=== PATIENT | female | born 1940 | race Caucasian/White ===

== ENCOUNTER 2022-03-16 10:07 | Inpatient (IN) | payer OTHER ==
[~2022-03-16] VITALS: Ht 162.6 cm; Wt 59.0 kg
[2022-03-16 10:11] VITALS: BP_SYST 138
[2022-03-16 10:46] LABS: BASOPHILS # (AUTO) 0.1 K/uL (0.0-0.2); BASOPHILS % (AUTO) 0.8 % (0.0-2.0); EOSINOPHILS # (AUTO) 0.7 K/uL (0.0-0.4); EOSINOPHILS % (AUTO) 7.7 % (0.0-4.0); HEMATOCRIT 37.4 % (36-48); HEMOGLOBIN 12.1 g/dL (12.0-16.0); LYMPHOCYTES # (AUTO) 1.8 K/uL (1.0-5.5); LYMPHOCYTES % (AUTO) 20.8 % (20.5-51.5); MEAN CORPUSCULAR HEMOGLOBIN 30 pg (27-31); MEAN CORPUSCULAR HGB CONC 33 % (32-36); MEAN CORPUSCULAR VOLUME 92 fL (79.0-98.0); MONOCYTES # (AUTO) 0.4 K/uL (0.0-1.0); MONOCYTES % (AUTO) 4.1 % (1.7-9.3); NEUTROPHILS # (AUTO) 5.7 K/uL (1.8-7.7); NEUTROPHILS % (AUTO) 66.6 % (40.0-70.0); PLATELET COUNT (AUTO) 244 K/uL (130-430); RED BLOOD CELL COUNT(AUTO) 4.08 MIL/uL (4.2-6.2); RED CELL DISTRIBUTION WIDTH 15.1 % (9.0-15.0); WHITE BLOOD COUNT (AUTO) 8.5 K/uL (4.8-10.8)
[2022-03-16 11:08] LABS: ANION GAP 8 (5-15); CALCIUM 8.5 mg/dL (8.4-11.0); CHLORIDE 106 mmol/L (98-107); CREATININE 1.63 mg/dL (0.55-1.30); GLUCOSE 104 mg/dL (70-99); SODIUM SERUM 141 mmol/L (136-145); UREA NITROGEN, BLOOD 26 mg/dL (8-21)
[2022-03-16 11:11] LABS: ALANINE AMINOTRANSFERASE 11 U/L (12-78); ALBUMIN 2.9 g/dL (3.4-4.8); ASPARTATE AMINOTRANSFERASE 19 U/L (10-37); TOTAL BILIRUBIN 0.2 mg/dL (0.0-1.0)
[2022-03-16] MEDS ORDERED: HYDROcodone/ACETAMIN 5-325 MG TAB (NORCO/ VICODIN) PO ONE (11:30)
[2022-03-16] MEDS ORDERED: IBUPROFEN 600 MG TABLET PO ONE (11:30)
[2022-03-16] MEDS ORDERED: ASPIRIN 81 MG TABLET(ECOTRIN) PO ONE (12:15)
[2022-03-16] MEDS ORDERED: TRAZ-250 PO (13:22)
[2022-03-16] MEDS ORDERED: ASPI-1155 PO (13:22)
[2022-03-16] MEDS ORDERED: FAMO20TA8 PO (13:22)
[2022-03-16] MEDS ORDERED: CEL20 PO (13:22)
[2022-03-16] MEDS ORDERED: LEVO25TA7 PO (13:22)
[2022-03-16] MEDS ORDERED: ASPIRIN 81 MG TAB.CHEW ONE (15:02)
[2022-03-16 16:17] VITALS: BP_SYST 153
[2022-03-16] MEDS: D5/0.45 NS 1,000 ML IV SCH (17:57)
[2022-03-16] MEDS ORDERED: DILTIAZEM HCL 60 MG TABLET PO SCH (18:00)
[2022-03-16 18:16] LABS: BILIRUBIN,URINE NEGATIVE (NEGATIVE); BLOOD, URINE NEGATIVE (NEGATIVE); CLARITY/URINE CLEAR (CLEAR); COLOR,URINE YELLOW (YELLOW); GLUCOSE,URINE NEGATIVE (NEGATIVE); KETONES,URINE NEGATIVE (NEGATIVE); LEUKOCYTE ESTERASE ,URINE NEGATIVE (NEGATIVE); NITRITE, URINE NEGATIVE (NEGATIVE); PH,URINE 6.5 (5.0-8.0); PROTEIN URINE NEGATIVE (NEGATIVE); UROBILINOGEN,URINE 0.2 (0.2-1.0)
[2022-03-16 20:00] VITALS: BP_SYST 132
[2022-03-16] MEDS: traZODone HCL 50 MG TABLET (DESYREL) PO SCH (20:29)
[2022-03-16] MEDS: FAMOTIDINE 20 MG TABLET PO SCH (20:30)
[2022-03-17 00:19] VITALS: BP_SYST 116
[2022-03-17 06:39] LABS: BASOPHILS # (AUTO) 0.1 K/uL (0.0-0.2); BASOPHILS % (AUTO) 0.6 % (0.0-2.0); EOSINOPHILS # (AUTO) 0.7 K/uL (0.0-0.4); EOSINOPHILS % (AUTO) 9.1 % (0.0-4.0); HEMATOCRIT 34.2 % (36-48); HEMOGLOBIN 11.3 g/dL (12.0-16.0); LYMPHOCYTES # (AUTO) 2.2 K/uL (1.0-5.5); LYMPHOCYTES % (AUTO) 28.1 % (20.5-51.5); MEAN CORPUSCULAR HEMOGLOBIN 30 pg (27-31); MEAN CORPUSCULAR HGB CONC 33 % (32-36); MEAN CORPUSCULAR VOLUME 91 fL (79.0-98.0); MONOCYTES # (AUTO) 0.5 K/uL (0.0-1.0); MONOCYTES % (AUTO) 6.9 % (1.7-9.3); NEUTROPHILS # (AUTO) 4.3 K/uL (1.8-7.7); NEUTROPHILS % (AUTO) 55.3 % (40.0-70.0); PLATELET COUNT (AUTO) 261 K/uL (130-430); RED BLOOD CELL COUNT(AUTO) 3.76 MIL/uL (4.2-6.2); RED CELL DISTRIBUTION WIDTH 14.9 % (9.0-15.0); WHITE BLOOD COUNT (AUTO) 7.8 K/uL (4.8-10.8)
[2022-03-17 06:45] LABS: ANION GAP 9 (5-15); CALCIUM 8.1 mg/dL (8.4-11.0); CHLORIDE 107 mmol/L (98-107); CREATININE 1.57 mg/dL (0.55-1.30); GLUCOSE 93 mg/dL (70-99); POTASSIUM 3.6 mmol/L (3.5-5.1); SODIUM SERUM 143 mmol/L (136-145); UREA NITROGEN, BLOOD 24 mg/dL (8-21)
[2022-03-17 07:04] LABS: ALANINE AMINOTRANSFERASE 16 U/L (12-78); ALBUMIN 2.7 g/dL (3.4-4.8); ASPARTATE AMINOTRANSFERASE 15 U/L (10-37); FREE T4 (FREE THYROXINE) 0.9 ng/dl (0.8-1.5); THYROID STIMULATING HORMONE 4.71 uIu/mL (0.36-3.74); TOTAL BILIRUBIN 0.2 mg/dL (0.0-1.0)
[2022-03-17 07:40] VITALS: BP_SYST 156
[2022-03-17 08:33] LABS: CHOLESTEROL 210 mg/dL (<200); HDL CHOLESTEROL 55 mg/dL (>55); LDL CHOLESTEROL 127 mg/dL (<100); TRIGLYCERIDES 90 mg/dL (30-150)
[2022-03-17] MEDS: ASPIRIN 81 MG TAB.CHEW PO SCH (09:01)
[2022-03-17] MEDS: LEVOTHYROXINE SODIUM 0.025 MG TABLET PO SCH (09:01)
[2022-03-17] MEDS: cefTRIAXone 1 GM IVPB PREMIX 50 ML IV SCH (10:12)
[2022-03-17] MEDS ORDERED: DIPHENHYDRAMINE HCL 25 MG CAPSULE PO PRN (11:00)
[2022-03-17] MEDS ORDERED: CLOPIDOGREL BISULFATE 75 MG TABLET PO ONE (11:00)
[2022-03-17] MEDS ORDERED: HYDROCORTISONE 2.5%, 30 GM TOPICAL CREAM TP PRN (11:00)
[2022-03-17] MEDS: ACETAMINOPHEN 325 MG TABLET PO PRN (11:17)
[2022-03-17 11:28] VITALS: BP_SYST 131
[2022-03-17] MEDS: traMADol HCL HCL 50 MG TABLET (ULTRAM) PO PRN ×2 (13:38→20:17)
[2022-03-17 16:08] VITALS: BP_SYST 125
[2022-03-17] MEDS: D5/0.45 NS 1,000 ML IV SCH (17:13)
[2022-03-17 20:09] VITALS: BP_SYST 128
[2022-03-17] MEDS: FAMOTIDINE 20 MG TABLET PO SCH (20:17)
[2022-03-17] MEDS: traZODone HCL 50 MG TABLET (DESYREL) PO SCH (20:17)
[2022-03-18] MEDS: D5/0.45 NS 1,000 ML IV SCH ×2 (00:05→09:34)
[2022-03-18 00:54] VITALS: BP_SYST 108
[2022-03-18 06:42] LABS: BASOPHILS % (AUTO) 0.5 % (0.0-2.0); EOSINOPHILS # (AUTO) 0.8 K/uL (0.0-0.4); EOSINOPHILS % (AUTO) 12.5 % (0.0-4.0); HEMATOCRIT 34.6 % (36-48); HEMOGLOBIN 11.2 g/dL (12.0-16.0); LYMPHOCYTES # (AUTO) 2.1 K/uL (1.0-5.5); LYMPHOCYTES % (AUTO) 34.8 % (20.5-51.5); MEAN CORPUSCULAR HEMOGLOBIN 30 pg (27-31); MEAN CORPUSCULAR HGB CONC 32 % (32-36); MEAN CORPUSCULAR VOLUME 92 fL (79.0-98.0); MONOCYTES # (AUTO) 0.5 K/uL (0.0-1.0); MONOCYTES % (AUTO) 7.6 % (1.7-9.3); NEUTROPHILS # (AUTO) 2.7 K/uL (1.8-7.7); NEUTROPHILS % (AUTO) 44.6 % (40.0-70.0); PLATELET COUNT (AUTO) 246 K/uL (130-430); RED BLOOD CELL COUNT(AUTO) 3.78 MIL/uL (4.2-6.2); WHITE BLOOD COUNT (AUTO) 6.1 K/uL (4.8-10.8)
[2022-03-18 07:29] LABS: ALANINE AMINOTRANSFERASE 12 U/L (12-78); ALBUMIN 2.7 g/dL (3.4-4.8); ANION GAP 7 (5-15); ASPARTATE AMINOTRANSFERASE 16 U/L (10-37); CALCIUM 8.4 mg/dL (8.4-11.0); CHLORIDE 107 mmol/L (98-107); CREATININE 1.47 mg/dL (0.55-1.30); GLUCOSE 98 mg/dL (70-99); POTASSIUM 3.6 mmol/L (3.5-5.1); SODIUM SERUM 142 mmol/L (136-145); TOTAL BILIRUBIN 0.2 mg/dL (0.0-1.0); UREA NITROGEN, BLOOD 22 mg/dL (8-21)
[2022-03-18 07:48] VITALS: BP_SYST 139
[2022-03-18] MEDS: ASPIRIN 81 MG TAB.CHEW PO SCH (08:42)
[2022-03-18] MEDS: CLOPIDOGREL BISULFATE 75 MG TABLET PO SCH (08:43)
[2022-03-18] MEDS: ATORVASTATIN 20 MG TABLET PO SCH (08:43)
[2022-03-18] MEDS: LEVOTHYROXINE SODIUM 0.025 MG TABLET PO SCH (08:43)
[2022-03-18] MEDS: cefTRIAXone 1 GM IVPB PREMIX 50 ML IV SCH (09:45)
[2022-03-18 11:56] VITALS: BP_SYST 139
[2022-03-18] MEDS ORDERED: ONDANSETRON HCL 4 MG/2 ML VIAL IVP PRN (13:15)
[2022-03-18] MEDS: traMADol HCL HCL 50 MG TABLET (ULTRAM) PO PRN (13:24)
[2022-03-18] MEDS ORDERED: BISACODYL 10 MG/SUPPOSITORY RC ONE (14:00)
[2022-03-18] MEDS ORDERED: BISACODYL 10 MG/SUPPOSITORY RC PRN (14:00)
[2022-03-18] MEDS ORDERED: DOCUSATE SODIUM 100 MG CAPSULE PO ONE (14:00)
[2022-03-18 16:09] VITALS: BP_SYST 139
[2022-03-18 20:01] VITALS: BP_SYST 135
[2022-03-18] MEDS: traZODone HCL 50 MG TABLET (DESYREL) PO SCH (22:24)
[2022-03-18] MEDS: DOCUSATE SODIUM 250 MG CAPSULE PO SCH (22:24)
[2022-03-18] MEDS: FAMOTIDINE 20 MG TABLET PO SCH (22:25)
[2022-03-18] MEDS: ACETAMINOPHEN 325 MG TABLET PO PRN (22:29)
[2022-03-19] VITALS (7 sets, daily range): BP systolic 124–161
[2022-03-19 07:07] LABS: BASOPHILS % (AUTO) 0.7 % (0.0-2.0); EOSINOPHILS # (AUTO) 0.3 K/uL (0.0-0.4); EOSINOPHILS % (AUTO) 4.1 % (0.0-4.0); HEMATOCRIT 32.9 % (36-48); HEMOGLOBIN 10.9 g/dL (12.0-16.0); LYMPHOCYTES % (AUTO) 30.4 % (20.5-51.5); MEAN CORPUSCULAR HEMOGLOBIN 30 pg (27-31); MEAN CORPUSCULAR HGB CONC 33 % (32-36); MEAN CORPUSCULAR VOLUME 91 fL (79.0-98.0); MONOCYTES # (AUTO) 0.4 K/uL (0.0-1.0); NEUTROPHILS # (AUTO) 3.9 K/uL (1.8-7.7); NEUTROPHILS % (AUTO) 58.8 % (40.0-70.0); PLATELET COUNT (AUTO) 247 K/uL (130-430); RED BLOOD CELL COUNT(AUTO) 3.61 MIL/uL (4.2-6.2); RED CELL DISTRIBUTION WIDTH 14.6 % (9.0-15.0); WHITE BLOOD COUNT (AUTO) 6.6 K/uL (4.8-10.8)
[2022-03-19 07:56] LABS: ANION GAP 6 (5-15); CALCIUM 8.6 mg/dL (8.4-11.0); CHLORIDE 108 mmol/L (98-107); CREATININE 1.36 mg/dL (0.55-1.30); GLUCOSE 100 mg/dL (70-99); POTASSIUM 3.8 mmol/L (3.5-5.1); SODIUM SERUM 143 mmol/L (136-145); UREA NITROGEN, BLOOD 18 mg/dL (8-21)
[2022-03-19] MEDS: DOCUSATE SODIUM 250 MG CAPSULE PO SCH ×2 (09:00→21:51)
[2022-03-19] MEDS: D5/0.45 NS 1,000 ML IV SCH (09:25)
[2022-03-19] MEDS: ASPIRIN 81 MG TAB.CHEW PO SCH (09:26)
[2022-03-19] MEDS: ATORVASTATIN 20 MG TABLET PO SCH (09:27)
[2022-03-19] MEDS: LEVOTHYROXINE SODIUM 0.025 MG TABLET PO SCH (09:27)
[2022-03-19] MEDS: CLOPIDOGREL BISULFATE 75 MG TABLET PO SCH (09:27)
[2022-03-19] MEDS ORDERED: MINERAL OIL 133 ML ENEMA RC ONE (15:15)
[2022-03-19] MEDS ORDERED: LACTULOSE 20 GM/30 ML UDC PO ONE ×2 (16:30)
[2022-03-19] MEDS: traZODone HCL 50 MG TABLET (DESYREL) PO SCH (21:51)
[2022-03-19] MEDS: FAMOTIDINE 20 MG TABLET PO SCH (21:52)
[2022-03-20 00:41] VITALS: BP_SYST 151
[2022-03-20] MEDS: ACETAMINOPHEN 325 MG TABLET PO PRN (01:09)
[2022-03-20] MEDS: D5/0.45 NS 1,000 ML IV SCH (02:24)
[2022-03-20 06:26] LABS: BASOPHILS % (AUTO) 0.6 % (0.0-2.0); EOSINOPHILS # (AUTO) 0.4 K/uL (0.0-0.4); EOSINOPHILS % (AUTO) 5.7 % (0.0-4.0); HEMATOCRIT 33.2 % (36-48); HEMOGLOBIN 11.1 g/dL (12.0-16.0); LYMPHOCYTES # (AUTO) 1.8 K/uL (1.0-5.5); LYMPHOCYTES % (AUTO) 23.3 % (20.5-51.5); MEAN CORPUSCULAR HEMOGLOBIN 30 pg (27-31); MEAN CORPUSCULAR HGB CONC 33 % (32-36); MEAN CORPUSCULAR VOLUME 91 fL (79.0-98.0); MONOCYTES # (AUTO) 0.5 K/uL (0.0-1.0); MONOCYTES % (AUTO) 6.5 % (1.7-9.3); NEUTROPHILS # (AUTO) 5.1 K/uL (1.8-7.7); NEUTROPHILS % (AUTO) 63.9 % (40.0-70.0); PLATELET COUNT (AUTO) 255 K/uL (130-430); RED BLOOD CELL COUNT(AUTO) 3.64 MIL/uL (4.2-6.2); RED CELL DISTRIBUTION WIDTH 14.7 % (9.0-15.0); WHITE BLOOD COUNT (AUTO) 7.9 K/uL (4.8-10.8)
[2022-03-20 06:37] LABS: ANION GAP 9 (5-15); CALCIUM 8.7 mg/dL (8.4-11.0); CHLORIDE 108 mmol/L (98-107); CREATININE 1.35 mg/dL (0.55-1.30); GLUCOSE 91 mg/dL (70-99); POTASSIUM 3.6 mmol/L (3.5-5.1); SODIUM SERUM 142 mmol/L (136-145); UREA NITROGEN, BLOOD 12 mg/dL (8-21)
[2022-03-20 08:00] VITALS: BP_SYST 151
[2022-03-20] MEDS: DOCUSATE SODIUM 250 MG CAPSULE PO SCH (09:00)
[2022-03-20] MEDS ORDERED: LACTULOSE 20 GM/30 ML UDC PO SCH (09:00)
[2022-03-20] MEDS: LEVOTHYROXINE SODIUM 0.025 MG TABLET PO SCH (09:01)
[2022-03-20] MEDS: ASPIRIN 81 MG TAB.CHEW PO SCH (09:01)
[2022-03-20] MEDS: ATORVASTATIN 20 MG TABLET PO SCH (09:01)
[2022-03-20] MEDS: CLOPIDOGREL BISULFATE 75 MG TABLET PO SCH (09:01)
[2022-03-20] MEDS ORDERED: DIATR MEGLU/DIATRIZ SOD 30 ML SOLUTION PO ONE (09:15)
[2022-03-20] MEDS ORDERED: DOCU250C71 PO (11:20)
[2022-03-20] MEDS ORDERED: LIP20 PO (11:20)
[2022-03-20 11:38] VITALS: BP_SYST 155
[2022-03-20 12:44] VITALS: BP_SYST 148
== END 2022-03-20 13:45 | disposition home health service (06) | DRG 306 ==
LOC: SED 10:07 → STU 13:00 → SMU 03-19 09:59
PROVIDERS: ADMIT Internal Medicine; ATTEND Internal Medicine
PROC: 4A10X4Z Monitoring of Central Nervous Electrical Activity, External Approach (ICD-10-PCS; principal; 2022-03-17)
DX: I35.0 Nonrheumatic aortic (valve) stenosis (principal); N17.0 Acute kidney failure with tubular necrosis; G45.9 Transient cerebral ischemic attack, unspecified; E44.0 Moderate protein-calorie malnutrition; E86.0 Dehydration; E03.9 Hypothyroidism, unspecified; F32.A Depression, unspecified; I25.10 Atherosclerotic heart disease of native coronary artery without angina pectoris; K59.00 Constipation, unspecified; D63.8 Anemia in other chronic diseases classified elsewhere; E78.5 Hyperlipidemia, unspecified; G89.29 Other chronic pain; Z20.822 Contact with and (suspected) exposure to COVID-19; Z79.82 Long term (current) use of aspirin; Z79.899 Other long term (current) drug therapy; Z79.890 Hormone replacement therapy; Z63.4 Disappearance and death of family member; Z68.22 Body mass index [BMI] 22.0-22.9, adult; I69.398 Other sequelae of cerebral infarction
CPT/HCPCS: 36415; 70450-TC; 70551; 71045; 71250-TC; 72100-TC; 76376; 76770; 80048; 80053; 80061; 81003; 83880; 84100; 84439; 84443; 84484; 85025; 85651-TC; 86140; 93005; 93306; 93880; 95816; 97110-GP; 97116-GP; 97530-GP; 99285; G0378; J0696; J2405; Q0163; Q9964